=== PATIENT | male | born 1995 | race Caucasian/White ===

== ENCOUNTER 2017-06-09 13:28 | Emergency (ER) | payer BC, MEDICAID ==
[2017-06-09 17:57] LABS: Hematocrit 46 % (42-52); Hemoglobin 15.8 g/dl (14.0-18.0); Mean Corpuscular HGB Conc 34 g/dl (31-36); Mean Corpuscular Hemoglobin 31 pg (27-31); Mean Corpuscular Volume 90 fL (80-94); Mean Platelet Volume 9 um3 (7.4-10.4); Red Blood Count 5.14 10^6/ul (4.0-5.4); Red Cell Distribution Width 12 % (10.5-15); White Blood Count 5.8 10^3/ul (3.5-10.8)
[2017-06-09 18:13] LABS: Albumin 4.6 g/dL (3.2-5.2); Calcium 9.5 mg/dL (8.6-10.3); EGFR African American 167.4 (>60); EGFR Non-African American 130.1 (>60); Globulin 3.1 g/dL (2-4); Potassium 3.5 mmol/L (3.5-5.0); Total Bilirubin 0.4 mg/dL (0.2-1.0); Total Protein 7.7 g/dL (6.4-8.9)
[2017-06-09 18:37] LABS: TSH (Thyroid Stimulating Horm) 1.53 mcIU/mL (0.34-5.60)
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
--- NOTE | 2017-06-09 20:57 | RAD ---
INDICATION: Back pain COMPARISON: Most recent comparison chest x-rays dated May 10, 2016 TECHNIQUE: PA and lateral views of the chest were obtained. FINDINGS: The heart and mediastinum are normal in size and contour. The lungs are grossly clear. There is no evidence of large pleural effusion. Visualized bones are normal for the patient's age. There is no radiographic evidence of free air beneath the diaphragm IMPRESSION: No radiographic evidence of acute cardiopulmonary disease.
[2017-06-09 21:20] VITALS: BP 120/54
[2017-06-12 15:50] LABS: Lyme Disease IgG Ab WB Negative (Negative)
== END 2017-06-09 21:06 ==
LOC: ED 13:28
DX: G89.29 Other chronic pain (principal); M54.9 Dorsalgia, unspecified; M54.2 Cervicalgia; F41.9 Anxiety disorder, unspecified
CPT/HCPCS: 36415; 71020; 80053; 82550; 83735; 84443; 85025; 85379; 86617; 99282

== ENCOUNTER 2017-06-17 20:36 | Emergency (ER) | payer BC, MEDICAID ==
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
[2017-06-18 00:26] VITALS: BP 133/85
--- NOTE | 2017-06-18 06:47 | RAD ---
INDICATION: Headache. COMPARISON: There are no prior studies available for comparison. TECHNIQUE: Contiguous axial sections of the brain were obtained from the skull base to the vertex without contrast. FINDINGS: The ventricles, cisterns and sulci are within normal limits. No significant focal abnormality or mass effect is seen. There is no evidence for hemorrhage. No significant focal osseous abnormality is seen. The visualized portion of the paranasal sinuses and mastoid air cells appear clear. There is a 1 cm soft tissue nodule present in the subcutaneous tissues in the scalp posterior to the right occipital bone. IMPRESSION: NO EVIDENCE FOR ACUTE INTRACRANIAL ABNORMALITY.
== END 2017-06-18 00:26 | disposition home or self-care (01) ==
LOC: ED 20:36
DX: M79.2 Neuralgia and neuritis, unspecified (principal); Z87.09 Personal history of other diseases of the respiratory system
CPT/HCPCS: 70450; 99282

== ENCOUNTER 2017-06-25 10:47 | Emergency (ER) | payer BC, MEDICAID ==
[2017-06-25 11:02] VITALS: BP 114/101
--- NOTE | 2017-06-25 11:32 | UC ---
Lower Extremity/Ankle HPI - HPI Summary HPI Summary: WOKE UP TO GET A DRINK OF WATER LAST NIGHT 3AM AND STUBBED HIS LEFT GREAT TOE ON A COUCH. HAS PAIN AND SWELLING. SOME TISSUE DAMAGE MEDIAL NAIL FOLD. HURTS TO WALK. - History of Current Complaint Chief Complaint: UCLaceration Stated Complaint: TOE INJURY Time Seen by Provider: 06/25/17 11:24 Hx Obtained From: Patient Onset/Duration: Sudden Onset, Lasting Hours, Still Present Severity Initially: Moderate Severity Currently: Moderate Pain Intensity: 9 Pain Scale Used: 0-10 Numeric Aggravating Factor(s): Ambulation Alleviating Factor(s): Rest Able to Bear Weight: Yes - Allergies/Home Medications Allergies/Adverse Reactions: Allergies Allergy/AdvReac Type Severity Reaction Status Date / Time No Known Allergies Allergy Verified 06/17/17 21:12 Home Medications: Home Medications DULoxetine DR CAP* [Cymbalta CAP*] 60 mg PO DAILY 06/25/17 [History Confirmed ] Gabapentin CAP(*) [Neurontin 300 CAP(*)] 300 mg PO BID 06/25/17 [History Confirmed 06/25/17] PMH/Surg Hx/FS Hx/Imm Hx - Additional Past Medical History Additional PMH: OCD, NEUROPATHY Other History Of: Negative For: Anticoagulant Therapy - Surgical History Surgical History: Yes Surgery Procedure, Year, and Place: APPENDIX - Family History Known Family History: Positive: Other - ANABEL ISSUES - peripheral neuropathy, CTS - Social History Alcohol Use: None Substance Use Type: None Smoking Status (MU): Never Smoked Tobacco - Immunization History Vaccination Up to Date: Yes Review of Systems Constitutional: Negative Skin: Other - LEFT GREAT TOE SKIN MACERATION Respiratory: Negative Cardiovascular: Negative Gastrointestinal: Negative Musculoskeletal: Arthralgia, Edema All Other Systems Reviewed And Are Negative: Yes Physical Exam Triage Information Reviewed: Yes Appearance: Well-Appearing, No Pain Distress, Well-Nourished Vital Signs: Initial Vital Signs Temp 98.5 F 06/25/17 10:50 Pulse 90 06/25/17 10:50 Resp 14 06/25/17 10:50 BP 114/101 06/25/17 10:50 Pulse Ox 100 06/25/17 10:50 Vital Signs Reviewed: Yes Eyes: Positive: Conjunctiva Clear ENT: Positive: Hearing grossly normal Neck: Positive: Supple Respiratory: Positive: No respiratory distress, No accessory muscle use Cardiovascular: Positive: Pulses Normal Abdomen Description: Positive: Soft Musculoskeletal: Positive: ROM Intact, Edema @ - LEFT GREAT TOE Neurological: Positive: Alert Psychological: Positive: Age Appropriate Behavior Skin: Positive: Other - LEFT GREAT TOE WITH SKIN MACERATION MEDIAL NAILBED. Negative: rashes Diagnostics - Radiology LEFT GREAT TOE XRAY Xray Interpretation: Positive (See Comments) - Questionable nondisplaced fracture involving the distal tuft of the left great toe Radiology Interpretation Completed By: Radiologist Lower Extremity Course/Dx - Course Course Of Treatment: IRRIGATION WITH SALINE. KEFLEX, POST-OP SHOE. FOLLOW-UP ORTHO. PT DECLINES CRUTCHES. - Differential Dx/Diagnosis Provider Diagnoses: Nondisplaced open fracture involving the distal tuft of the left great toe Discharge - Discharge Plan Condition: Stable Disposition: HOME Prescriptions: Cephalexin CAP* [Keflex 500 CAP*] 1,000 mg PO BID #40 cap Patient Education Materials: Toe Fracture (ED) Referrals: Paty Morataya MD [Primary Care Provider] - If Needed Nicholas Hoff MD [Medical Doctor] - 2 Days Additional Instructions: Questionable nondisplaced fracture involving the distal tuft of the left great toe seen on xray today. Given the injury to the skin this could be an open fracture which carries higher risk of developing infection. Take antibiotics and call ortho first thing Tuesday for a follow-up appt. Post- op shoe for comfort. Rest, ice, elevate.
--- NOTE | 2017-06-25 12:30 | RAD ---
INDICATION: Lucent L bed after stubbing toe the previous night TECHNIQUE: 3 views of the left great toe were obtained. FINDINGS: The visualized bones are normal alignment. Joint spaces appear maintained. Along the plantar aspect of the distal left great toe distal phalanx there is a lucent line which potentially could represent a nondisplaced fracture but more likely is the distal tuft. IMPRESSION: Questionable nondisplaced fracture involving the distal tuft of the left great toe as described above.
== END 2017-06-25 13:05 | disposition home or self-care (01) ==
LOC: UCEAST 10:47
DX: S92.425B Nondisplaced fracture of distal phalanx of left great toe, initial encounter for open fracture (principal); W18.40XA Slipping, tripping and stumbling without falling, unspecified, initial encounter; F42.9 Obsessive-compulsive disorder, unspecified; G62.9 Polyneuropathy, unspecified
CPT/HCPCS: 99212; G0463